=== PATIENT | female | born 1965 | race American Indian/Alaskan Native ===

== ENCOUNTER 2020-07-31 04:40 | Emergency (ER) | payer MEDICARE ==
[2020-07-31] MEDS ORDERED: cloNIDine 0.2 MG TAB PO ONE (06:54)
--- NOTE | 2020-07-31 07:07 | Emergency Department Report ---
HPI - General Chief Complaint: High BP Time Seen by Provider: 07/31/20 06:54 - HPI HPI: Room 22 The patient is a 55-year-old male present with a chief complaint of hypertension. The patient is currently at [facility] under 1013 for psychosis. Patient was found to be hypertensive and sent to the ED for further management. Patient does not have a headache. Patient states she is on amlodipine and Toprol-XL for hypertension and this was administered to her yesterday ED Past Medical Hx - Past Medical History Previous Medical History?: Yes Hx Hypertension: Yes Additional medical history: Hypothyroidism, Lupus, Fibromyalgia, neck pain - Surgical History Hx Cholecystectomy: Yes Hx Appendectomy: Yes Additional Surgical History: Tonsillectomy, hysterectomy, left upper extremity reconstruction - Family History Family history: no significant - Social History Smoking Status: Never Smoker Substance Use Type: None (Denies illicit drug use), Alcohol (Occasional) ED Review of Systems ROS: Stated complaint: HIGH BLOOD PRESSURE Other details as noted in HPI Constitutional: no symptoms reported Eyes: denies: eye pain ENT: denies: throat pain Respiratory: no symptoms reported Cardiovascular: denies: chest pain Endocrine: no symptoms reported Gastrointestinal: denies: abdominal pain Genitourinary: denies: dysuria Musculoskeletal: denies: myalgia Neurological: denies: headache Physical Exam - Physical Exam Vital Signs: Vital Signs 07/31/20 07/31/20 07/31/20 05:33 06:43 06:56 Temperature 98.5 F Pulse Rate 115 H 110 H 110 H Respiratory 16 19 Rate Blood Pressure 177/79 Blood Pressure 178/84 179/79 177/79 [Right] O2 Sat by Pulse 99 98 Oximetry Vital Signs 07/31/20 07/31/20 07/31/20 05:33 06:43 06:56 Temperature 98.5 F Pulse Rate 115 H 110 H 110 H Respiratory 16 19 Rate Blood Pressure 177/79 Blood Pressure 178/84 179/79 177/79 [Right] O2 Sat by Pulse 99 98 Oximetry 07/31/20 07/31/20 07/31/20 07:00 07:15 07:30 Temperature Pulse Rate Respiratory Rate Blood Pressure 177/79 180/81 180/81 Blood Pressure [Right] O2 Sat by Pulse 100 99 98 Oximetry 07/31/20 07/31/20 08:00 08:30 Temperature Pulse Rate Respiratory Rate Blood Pressure 177/84 160/77 Blood Pressure [Right] O2 Sat by Pulse 96 98 Oximetry Physical Exam: GENERAL: The patient is well-developed well-nourished female lying on stretcher not appearing to be in acute distress. [] HEENT: Normocephalic. Atraumatic. Extraocular motions are intact. Patient has moist mucous membranes. NECK: Supple. Trachea midline CHEST/LUNGS: Clear to auscultation. There is no respiratory distress noted. HEART/CARDIOVASCULAR: Regular. There is no tachycardia. There is no gallop rub or murmur. ABDOMEN: Abdomen is soft, nontender. Patient has normal bowel sounds. There is no abdominal distention. SKIN: There is no rash. There is no edema. There is no diaphoresis. NEURO: The patient is awake, alert, and oriented. The patient is cooperative. The patient has no focal neurologic deficits. The patient has normal speech. Cranial nerves II through XII grossly intact. GCS 15 MUSCULOSKELETAL: There is no evidence of acute injury. ED Course Vital Signs 07/31/20 07/31/20 07/31/20 05:33 06:43 06:56 Temperature 98.5 F Pulse Rate 115 H 110 H 110 H Respiratory 16 19 Rate Blood Pressure 177/79 Blood Pressure 178/84 179/79 177/79 [Right] O2 Sat by Pulse 99 98 Oximetry ED Medical Decision Making - Differential Diagnosis Hypertension Critical care attestation.: If time is entered above; I have spent that time in minutes in the direct care of this critically ill patient, excluding procedure time. ED Disposition Clinical Impression: Hypertension Disposition: [id number]/TX-[id number] PSY HOSP/PSY UNIT Is pt being admited?: No Does the pt Need Aspirin: No Condition: Stable Instructions: Hypertension (ED) Additional Instructions: Please take your antihypertensives as prescribed. Return to the emergency department should you develop worsening symptoms, inability to tolerate food or liquids, high fever or any other concerns Referrals: CLAUDIA AVILA,KRIS [Other] - 3-5 Days Time of Disposition: 09:08
[2020-07-31 10:10] VITALS: BP 164/91
== END 2020-07-31 11:39 ==
LOC: EDSEX 04:40 → ED 04:40
DX: I10 Essential (primary) hypertension (principal); E03.9 Hypothyroidism, unspecified; M79.7 Fibromyalgia; Z90.49 Acquired absence of other specified parts of digestive tract; Z90.89 Acquired absence of other organs; Z90.710 Acquired absence of both cervix and uterus; Z79.899 Other long term (current) drug therapy
CPT/HCPCS: 99283